=== PATIENT | male | born 1945 | race Caucasian/White ===

== ENCOUNTER 2016-09-30 17:48 | Emergency (ER) | payer MEDICARE, OTHER ==
--- OUTSIDE RECORDS SUMMARY | 2016-09-30 18:09 | XMS REPORT | CCD ---
:1945 Author Name ANETTE RUBIO Address [address] [place] [address] Care Team Providers Name Role Phone TANESHA EUBANKS Attending Physician Unavailable Allergies Allergy Code Allergy Type Reaction Status No Known Drug Allergies 0 Drug allergy Active Active Medications Unknown or Not Available. Problems Unknown or Not Available. Procedures Procedure Code Procedure Type Date Extracapsular [place] [address] CPT 07/25/2016 intraocular lens prosthesi Results Unknown or Not Available. Function Status Unknown or Not Available. History of Immunizations Unknown or Not Available. Plan of Treatment Unknown or Not Available. Social History Smoking Status Code Start Date End Date Never smoker [id number] Vital Signs Vital Sign Value Unit Date/Time Recent/Initial? Weight Measured 177.68 [lb_av] 07/10/2016 12:18 Initial VS Height 69 [in_i] 07/10/2016 12:18 Initial VS BMI (Body Mass Index) 26.24 kg/m2 07/10/2016 12:18 Initial VS BSA (Body Surface Area) 1.98 m2 07/10/2016 12:18 Initial VS Function Status Unknown or Not Available. Goals Unknown or Not Available. ASSESSMENTS Unknown or Not Available. Health Concerns Section Unknown or Not Available.
--- OUTSIDE RECORDS SUMMARY | 2016-09-30 18:09 | XMS REPORT | CCD ---
:1945 Author Name NELLYLINNEA KIM Loli Address [address] [facility] [address] Care Team Providers Name Role Phone TANESHA EUBANKS Attending Physician Unavailable Allergies Allergy Code Allergy Type Reaction Status No Known Drug Allergies 0 Drug allergy Active Active Medications Unknown or Not Available. Problems Unknown or Not Available. Procedures Procedure Code Procedure Type Date Cataract removal insertion of lens; (-RT Right side 49316 CPT 07/18/2016 of body) Results Unknown or Not Available. Function Status Unknown or Not Available. History of Immunizations Unknown or Not Available. Plan of Treatment Unknown or Not Available. Social History Smoking Status Code Start Date End Date Never smoker [id number] Vital Signs Vital Sign Value Unit Date/Time Recent/Initial? Weight Measured 177.7 [lb_av] 07/03/2016 10:40 Initial VS Height 69 [in_i] 07/03/2016 10:40 Initial VS BMI (Body Mass Index) 26.24 kg/m2 07/03/2016 10:40 Initial VS BSA (Body Surface Area) 1.98 m2 07/03/2016 10:40 Initial VS Function Status Unknown or Not Available. Goals Unknown or Not Available. ASSESSMENTS Unknown or Not Available. Health Concerns Section Unknown or Not Available.
[2016-09-30 18:28] LABS: Urine Appearance Cloudy; Urine Bilirubin Negative (NEGATIVE); Urine Blood 250 /ul (NEGATIVE); Urine Color Yellow; Urine Ketone Negative (NEGATIVE); Urine Protein >=300 mg/dL (NEGATIVE); Urine pH 5.5 pH (5.0-7.0)
[2016-09-30 18:29] LABS: Urine Bacteria 3+; Urine Nitrite Negative (NEGATIVE); Urine RBC 25-50 /hpf (0-5); Urine Urobilinogen Normal (NORMAL); Urine WBC >50 /hpf (0-5)
--- NOTE | 2016-09-30 18:31 | ERNOTE ---
ER Male HPI Date of Service: 09/30/16 Stated Complaint: URINARY RETENTION ER Male: dysuria Time Seen by Provider: 09/30/16 18:00 Source: patient Exam Limitations: no limitations Immunizations: IMMUNIZATION HX Immunizations Up to Date Yes History of Influenza Vaccine No Hx Pneumococcal Vaccination No Allergies/Adverse Reactions: Allergies No Known Allergies Allergy (Unverified 09/30/16 17:55) Home Medications: HOME MEDICATIONS Amlodipine Besylate 10 mg PO DAILY 09/30/16 [Last Taken Unknown] Benazepril HCl [Lotensin] 20 mg PO DAILY 09/30/16 [Last Taken Unknown] Cefuroxime Axetil [Ceftin] 500 mg PO BID #28 tablet NS 09/30/16 [Last Taken Unknown] Simvastatin [Zocor] 40 mg PO HS 09/30/16 [Last Taken Unknown] - Pain Score Pain Score #1 Pain Score: 2 - bilateral CVA tenderness - History of Present Illness Narrative: Patient is a 71 year old male who presents to the ED with his with complaints of burning with urination, frequency and chills since mid night. States noticed urinary burning and as time progressed, now states he is having urinary frequency where he feels the need to urinate every 15-30 minutes with scant output. Complained of generalized abdominal pain last night which has since resolved. Complains of mild bilateral CVA tenderness. Denies testicular or penile pain. Denies NVD. Low grade temperature in triage of 100.2 Date (Duration): 09/30/16 Time (Timing): 00:00 Timing: Present: other - present with every urination Quality: Present: mild, burning Onset Location: Present: other - bilateral CVA tenderness Radiation: Present: none Activities at Onset: Present: sleep Prior Abdominal Problems: Present: none Sexual Point Baker History: Present: same sex partner Modifying Factors - (Improves): Present: other - nothing Modifying Factors - (Worsens): Present: urinating Associated Symptoms: Present: fever/chills, diaphoresis, abdominal pain - last night, has since resolved, dysuria, urinary frequency. Absent: nausea, vomiting , polyuria, loss of bladder control, low back pain, mass, nocturia Review of Systems - Review of Systems Constitutional: Present: fever, chills, diaphoresis. Absent: weakness, fatigue , malaise, weight loss EYE: Present: no symptoms reported ENT: Present: no symptoms reported Respiratory: Present: no symptoms reported. Absent: shortness of breath, cough , orthopnea, wheezing Cardiology: Present: no symptoms reported. Absent: chest pain, palpitations, syncope, edema Gastrointestinal/Abdominal: Present: abdominal pain - resolved. Absent: nausea , vomiting, diarrhea Genitourinary: Present: frequency, dysuria, decreased urinary output. Absent: hematuria Musculoskeletal: Present: other - bilateral CVA tenderness Skin: Present: no symptoms reported Neurological: Present: no symptoms reported Endocrine: Present: no symptoms reported Hematologic/Lymphatic: Present: no symptoms reported Psych: Present: no symptoms reported - Patient's Past Medical History Patient History - Medical: No pertinent hx Patient History - Cardiac/Respiratory: Hypertension, Hyperlipidemia Patient History - Cancer: No Hx of Cancer Patient History - Surgical Procedures: Cataracts Patient History - Other: None - Social History Living Situations: home Psych History: No pertinent hx Smoking Status: Never smoker - Immunizations Immunizations Up to Date: Yes Hx Pneumococcal Vaccination: No History of Influenza Vaccine: No Physical Exam - Physical Exam General Appearance: Present: wd/wn, alert, no apparent distress Head Exam: Present: normal inspection, no evidence of injury Eye Exam: Normal inspection: bilateral, PERRL: bilateral, EOMI: bilateral Ears, Nose, Throat: Present: normal pharynx. Absent: dry mucous membranes Neck: Present: normal inspection, nontender, supple, full range of motion Respiratory: Present: no respiratory distress, normal breath sounds, no accessory muscle use, chest nontender, lungs clear Cardiovascular/Chest: Present: regular rate, rhythm, no murmur, normal peripheral pulses Gastrointestinal/Abdominal: Present: normal bowel sounds, nontender, nondistended, soft, no organomegaly Rectal Exam: Present: deferred Male Genitals Exam: Absent: scrotum tenderness (R), scrotum tenderness (L), testicular tenderness (R), testicular tenderness (L) Back Exam: Present: normal inspection, normal range of motion, no vertebral tenderness, CVA tenderness (R), CVA tenderness (L) Extremity Exam: Present: normal inspection, non-tender, normal range of motion, no edema Neurological Exam: Present: alert, oriented, normal mood/affect, no motor/ sensory deficits Skin Exam: Present: normal color, warm/dry Lymphatic Exam: Present: no adenopathy ED Progress - Results and Orders Patient's Lab Results:: I have reviewed the patient's lab results. - Vital Signs Patient's Vital Signs:: I have reviewed the patient's vital signs. Vital Signs: Vital Signs 09/30/16 17:51 Temperature 37.9 C H Pulse Rate 97 Respiratory 16 Rate Blood Pressure 156/83 O2 Sat by Pulse 97 Oximetry - Progress/Reassessment Chief Complaint: Urinary Tract Problems Progress:: Improved Progress Note-Subjective: 09/30/16 Patient and verbalized understanding regarding antibiotic use and treatment plan Departure Clinical Impression: Hypokalemia UTI (urinary tract infection) Qualifiers: Urinary tract infection type: site unspecified Hematuria presence: without hematuria Qualified Code(s): N39.0 - Urinary tract infection, site not specified - Departure Disposition: Home Follow Up Needed Condition: Good Instructions: Urinary Tract Infection, Adult, [id number], Hypokalemia Additional Instructions: Take antibiotic twice a day x 2 weeks even when burning/frequency stops. Finish entire course and follow up with primary physician in 1-2 weeks. Increase water intake. Return if pain worsens, nausea/vomiting or fever occurs. Referrals: Angel Davis MD [Primary Care Provider] - Prescriptions: Cefuroxime Axetil [Ceftin] 500 mg PO BID #28 tablet NS
[2016-09-30] MEDS ORDERED: NORMAL SALINE 500 ML IV ONE ×2 (18:36→19:21)
[2016-09-30 18:49] LABS: Hematocrit 39.6 % (42.0-52.0); Hemoglobin 13.8 gm/dL (13.5-18.0); Mean Cell Volume 90.4 fl (78-100); Mean Corpuscular Hemoglobin 31.5 pg (27-31); Mean Corpuscular Hgb Conc 34.8 g/dl (32-36); Mean Platelet Volume 10.5 fl (6.0-9.5); Neutrophil # 14.9 K/mm3 (1.3-6.0); Neutrophil % 87.2 % (42-75.0); Platelet Count 219 K/mm3 (150-450); Red Blood Count 4.38 M/mm3 (4.7-6.0); Red Cell Distribution Width 13.1 % (11.5-14.0); White Blood Count 17.2 K/mm3 (4.0-10.5)
[2016-09-30 19:08] LABS: Albumin * 4.1 gm/dl (3.4-5.0); Anion Gap 13.3 mmol/L (6.8-13.8); BUN/Creatinine Ratio 11.7 (9.0-21.6); Bilirubin, Total 0.8 mg/dL (0.0-1.1); Ca. Corrected For Albumin 8.5 mg/dL (8.4-10.2); Calcium * 8.9 mg/dL (7.9-10.9); Carbon Dioxide 27.8 mmol/L (24-32.6); Potassium 3.1 mmol/L (3.4-4.6)
[2016-09-30] MEDS ORDERED: POTASSIUM CHLORIDE 20 MEQ TABLET.SA PO ONE (19:17)
[2016-09-30] MEDS ORDERED: POTASSIUM CHLORIDE 20 MEQ TABLET.SA ONE ×2 (19:23→19:30)
[2016-09-30 20:05] VITALS: BP 158/82
== END 2016-09-30 20:06 | disposition home or self-care (01) ==
LOC: ER 17:48
DX: E87.6 Hypokalemia (principal); N39.0 Urinary tract infection, site not specified; I10 Essential (primary) hypertension; E78.5 Hyperlipidemia, unspecified